=== PATIENT | male | born 1950 | race Native Hawaiian/Other Pacific Islander ===

== ENCOUNTER 2016-12-25 08:14 | Day surgery (SDC) | payer OTHER ==
[~2016-12-25] VITALS: Ht 30.5 cm; Wt 0.5 kg
== END 2016-12-25 11:08 | disposition home or self-care (01) ==
LOC: OR 08:14
PROC: 08RJ3JZ Replacement of Right Lens with Synthetic Substitute, Percutaneous Approach (ICD-10-PCS; principal; 2016-12-25)
DX: H25.811 Combined forms of age-related cataract, right eye (principal)
CPT/HCPCS: 66984; J0171; V2632